=== PATIENT | male | born 1960 | race Two or more races ===

== ENCOUNTER 2020-08-16 08:45 | Emergency (ER) | payer OTHER ==
[~2020-08-16] VITALS: Ht 180.3 cm; Wt 104.3 kg
[~2020-08-16 08:45] MED LIST: PANADOL EXTRA500 MG; PARAFON FORTE500 MG
[2020-08-16] MEDS ORDERED: COZAAR100 MG PO (09:02)
[2020-08-16] MEDS ORDERED: CATAPRES0.1 MG PO (09:02)
== END 2020-08-16 11:22 | disposition home or self-care (01) ==
LOC: ER 08:45
DX: M25.421 Effusion, right elbow (principal)